=== PATIENT | female | born 1975 | race African-American/Black ===

== ENCOUNTER 2020-03-24 17:44 | Emergency (ER) | payer OTHER ==
[~2020-03-24] VITALS: Ht 152.4 cm; Wt 63.5 kg
[2020-03-24] MEDS ORDERED: BIRTH CONTROL (18:03)
[2020-03-24] MEDS ORDERED: IBU600 MG PO (19:19)
[2020-03-24] MEDS ORDERED: FLEXERIL PO (19:19)
[2020-03-24 19:28] VITALS: BP 132/68
== END 2020-03-24 19:28 | disposition home or self-care (01) ==
LOC: M.ERS 17:44
DX: S13.4XXA Sprain of ligaments of cervical spine, initial encounter (principal); R51.9 Headache, unspecified; N80.9 Endometriosis, unspecified; V89.2XXA Person injured in unspecified motor-vehicle accident, traffic, initial encounter; Y93.89 Activity, other specified; Y92.89 Other specified places as the place of occurrence of the external cause; Y99.8 Other external cause status